=== PATIENT | male | born 1945 | race Hispanic/Latino ===

== ENCOUNTER → 2018-09-09 | Outpatient (CLI) | payer MEDICARE | END | disposition home or self-care (01) | LOC: RAH 13:57 | PROVIDERS: ATTEND Orthopaedic Surgery | DX: S83.232A Complex tear of medial meniscus, current injury, left knee, initial encounter (principal); M17.12 Unilateral primary osteoarthritis, left knee; M25.462 Effusion, left knee; X58.XXXA Exposure to other specified factors, initial encounter; Y93.89 Activity, other specified; Y92.89 Other specified places as the place of occurrence of the external cause; Y99.8 Other external cause status | CPT/HCPCS: 73721 ==

== ENCOUNTER 2018-10-24 07:30 | Day surgery (SDC) | payer MEDICARE ==
[2018-10-23 16:47] LABS: CREATININE 1.1 mg/dL (0.5-1.5); POTASSIUM 4.7 mmol/L (3.5-5.1)
[2018-10-23 17:13] VITALS: BP 195/92
[2018-10-24] VITALS (15 sets, daily range): BP systolic 118–156; BP diastolic 62–80
[~2018-10-24] VITALS: Ht 176.5 cm; Wt 102.7 kg
[~2018-10-24 07:30] MED LIST: AMLO10TA7 PO; ASPI-555 PO; ATOR20TA65 PO; CEFAZOLIN 3GM /D5W 100ML 100 ML IV SCH; CYAN500T63 PO; INSULIN SQ; METF-446 PO; SPIR25TA6 PO; VALS160T29 PO
[2018-10-24] MEDS ORDERED: SODIUM CHLORIDE 0.9% 1000ML 1,000 ML IV ONE (08:15)
[2018-10-24] MEDS ORDERED: LIDOCAINE PF 2% 5ML ABBOJECT ONE (08:23)
[2018-10-24] MEDS ORDERED: PROPOFOL 10 MG/ML 20ML VIAL IV ONE (08:24)
[2018-10-24] MEDS ORDERED: ROCURONIUM 10MG/1ML SYR 10 MG/ML ML ONE (08:24)
[2018-10-24] MEDS ORDERED: FENTANYL CITRATE PF 50 MCG/1 ML 2ML VIAL ONE ×2 (08:24→09:24)
[2018-10-24] MEDS ORDERED: MIDAZOLAM HCL 1 MG/ML 2ML VIAL ONE (08:24)
--- NOTE | 2018-10-24 08:25 | NUR ---
POTENTIAL FOR INFECTION: SHAVED LEFT KNEE / LEG PER PAM MALDONADO, FOLLOWED BY WIPING WITH MARCUS: 2% CHLORHEXIDINE GLUCONATE CLOTH PATIENTS PRE-OP SKIN PREP.
[2018-10-24] MEDS: CEFAZOLIN SODIUM 1 GM VIAL ONE ×2 (08:34→08:45)
[2018-10-24] MEDS ORDERED: CYAN50008 PO (08:51)
[2018-10-24] MEDS ORDERED: MECL-111 PO (08:51)
[2018-10-24] MEDS ORDERED: INSU100I26 SQ (08:51)
[2018-10-24] MEDS ORDERED: PHENYLEPHRINE HCL 10 MG/ML 1ML VIAL IV ONE (09:01)
[2018-10-24] MEDS ORDERED: EPHEDRINE SULFATE 50 MG/ML AMPULE ONE (09:11)
[2018-10-24] MEDS ORDERED: SODIUM CHLORIDE 0.9% 10 ML VIAL ONE (09:12)
[2018-10-24] MEDS ORDERED: KETOROLAC TROMETHAMINE 30MG/ML ONE (09:18)
[2018-10-24] MEDS ORDERED: NEOSTIGMINE 5MG/5ML SYR IV ONE (09:19)
[2018-10-24] MEDS ORDERED: GLYCOPYRROLATE 1 MG/5 ML SYRINGE ONE (09:19)
[2018-10-24] MEDS ORDERED: ONDANSETRON HCL 4 MG/2 ML VIAL ONE (09:19)
[2018-10-24] MEDS ORDERED: CEPH500B PO (09:52)
[2018-10-24] MEDS ORDERED: NAPR375T6 PO (09:52)
[2018-10-24] MEDS ORDERED: TYL3 PO (09:52)
[2018-10-24] MEDS ORDERED: MEPERIDINE-PF 25 MG/ML SYG ONE ×2 (10:03→10:18)
[2018-10-24] MEDS ORDERED: ACETAMINOPHEN-CODEINE 300/30MG TAB ONE (11:29)
--- NOTE | 2018-10-24 11:30 | NUR ---
NOTIFY WHITNEY WINN MORNING SHOW HOST NOTIFIED PT COMPLAINING OF PAIN TO LEFT KNEE SCALE OF 5, NO CHANGE EVEN AFTER ICE PACK APPLIED, ELEVATION. O2 SAT 92-94% RA. PT AWAKE ALERT, LUNGS CLEAR BILATERALLY. MORNING SHOW HOST WENT TO SEE AND TALKED TO PT AND HIS . PER MORNING SHOW HOST, OBSERVE PT FOR A LITTLE MORE TIME, MAY DISCHARGE PT IF O2 SAT CONSISTENT 94% AND ABOVE RA AND IF NOT IN SEVERE PAIN. DEEP BREATHING AND COUGHING EXERCISE INSTRUCTED.
--- NOTE | 2018-10-24 12:00 | NUR ---
DISCHARGE PT DISCHARGED VIA WHEELCHAIR WITH . PT STABLE. NOT IN ANY APPARENT DISTRESS. NO COMPLAINTS MADE, STATED HE FEELS BETTER AND READY TO GO HOME. LEFT KNEE DRESSING DRY AND INTACT, NO OOZING NOTED. CRUTCHES AND CRUTCH USE INFORMATION PROVIDED. DISCHARGE INSTRUCTIONS GIVEN TO AND PT, VERBALIZED UNDERSTANDING.
== END 2018-10-24 12:00 | disposition home or self-care (01) ==
LOC: DAH 07:30
PROVIDERS: ATTEND Orthopaedic Surgery
DX: S83.232A Complex tear of medial meniscus, current injury, left knee, initial encounter (principal); M67.52 Plica syndrome, left knee; I10 Essential (primary) hypertension; E78.5 Hyperlipidemia, unspecified; E11.9 Type 2 diabetes mellitus without complications; G47.30 Sleep apnea, unspecified; Z79.899 Other long term (current) drug therapy; E78.00 Pure hypercholesterolemia, unspecified; Z98.890 Other specified postprocedural states; Y93.73 Activity, racquet and hand sports; Y93.89 Activity, other specified; Y92.89 Other specified places as the place of occurrence of the external cause; Y99.8 Other external cause status
CPT/HCPCS: 29881; 36415; 80048; 82948 ×2; A4215; A4221; A4606; A4649 ×2; A4930 ×2; A5120; A6223; J0690; J1885; J2001; J2175 ×2; J2250; J2370; J2405; J2704; J2710; J3010 ×2; J3490 ×2; J7030 ×2; J7120

== ENCOUNTER → 2020-02-24 | Outpatient (CLI) | payer MEDICARE ==
[~2020-02-24] MED LIST changes: +AMLO-258 PO; -AMLO10TA7 PO; -ASPI-555 PO; +ASPI-556 PO; -CEFAZOLIN 3GM /D5W 100ML 100 ML IV SCH; +CEPH500B PO; +CYAN50008 PO; -CYAN500T63 PO; +CYAN500T65 PO; +INSU100I26 SQ; -INSULIN SQ; +MECL-160 PO; +NAPR375T6 PO; +TYL3 PO
== END | disposition home or self-care (01) ==
LOC: RAH 09:41
DX: R74.8 Abnormal levels of other serum enzymes (principal)
CPT/HCPCS: 76705

== ENCOUNTER → 2020-08-19 | Outpatient (CLI) | payer MEDICARE ==
[~2020-08-19] VITALS: Ht 175.3 cm; Wt 98.9 kg
[~2020-08-19] MED LIST changes: -CYAN50008 PO; +CYAN50009 PO; -CYAN500T65 PO; +CYAN500T9 PO; +REGADENOSON 0.4 MG/5 ML PF SYG IVP SCH
== END | disposition home or self-care (01) ==
LOC: SHCH 08:58
PROVIDERS: ATTEND Internal Medicine Cardiovascular Disease
DX: Z01.810 Encounter for preprocedural cardiovascular examination (principal)
CPT/HCPCS: 78452; 93017; 96374; A9500 ×2; J2785

== ENCOUNTER 2020-09-29 15:00 | Observation (INO) | payer MEDICARE ==
[~2020-09-29] VITALS: Ht 175.3 cm; Wt 101.7 kg
[2020-09-29 10:08] LABS: BASOPHILS % (AUTO) 0.4 % (0.0-5.0); EOSINOPHILS % (AUTO) 1.8 % (0.0-8.0); HEMATOCRIT 39.3 % (42-54); LYMPHOCYTES % (AUTO) 30.2 % (21.0-51.0); MEAN CORPUSCULAR HGB CONC 33.1 g/dL (32.0-36.0); MEAN CORPUSCULAR VOLUME 87.7 fL (79-99); MONOCYTES % (AUTO) 7.6 % (3.0-13.0); NEUTROPHILS % (AUTO) 59.4 % (40.0-77.0); PLATELET COUNT (AUTO) 257 K/uL (130-400); RED BLOOD CELL COUNT(AUTO) 4.48 MIL/uL (4.50-6.20); WHITE BLOOD COUNT (AUTO) 10.3 K/uL (4.8-10.8)
[2020-09-29 10:19] LABS: CREATININE 1.1 mg/dL (0.5-1.5)
[~2020-09-29 15:00] MED LIST changes: -ATOR20TA65 PO; -CEPH500B PO; -CYAN50009 PO; -CYAN500T9 PO; -INSU100I26 SQ; -MECL-160 PO; -METF-446 PO; -NAPR375T6 PO; -REGADENOSON 0.4 MG/5 ML PF SYG IVP SCH; -TYL3 PO; -VALS160T29 PO
[2020-09-30 10:10] VITALS: BP 181/77
[2020-10-03] MEDS ORDERED: METO-408 PO (10:53)
[2020-10-03] MEDS ORDERED: ATOR20TA65 PO (10:53)
[2020-10-03] MEDS ORDERED: VALS320T16 PO (10:53)
[2020-10-03] MEDS ORDERED: METF-527 PO (10:53)
[2020-10-03] MEDS ORDERED: INSU100I26 SQ (10:53)
[2020-10-04] VITALS (22 sets, daily range): BP systolic 100–183; BP diastolic 52–77
[2020-10-04] MEDS ORDERED: CEFAZOLIN SODIUM 1 GM VIAL ONE ×2 (06:14→06:47)
[2020-10-04] MEDS ORDERED: 0.9%NACL 1000ML 1,000 ML IV ONE (06:14)
[2020-10-04] MEDS ORDERED: MORPHINE PF 100MG/10ML AMP IV ONE (06:47)
[2020-10-04] MEDS ORDERED: BUPIVACAINE/EPI/PF 0.25% 30ML VIAL IJ ONE (06:47)
[2020-10-04] MEDS ORDERED: THROMBIN-JMI 20000 UNIT KIT TP ONE (06:48)
[2020-10-04] MEDS ORDERED: SUCCINYLCHOLINE CHLORIDE 20 MG/ML 10 ML VIAL ONE (06:58)
[2020-10-04] MEDS ORDERED: LIDOCAINE PF 100MG/5ML (2%) SYRINGE 5ML ONE (06:58)
[2020-10-04] MEDS ORDERED: MIDAZOLAM HCL 1 MG/ML 2ML VIAL ONE (06:59)
[2020-10-04] MEDS ORDERED: PROPOFOL 10 MG/ML 20ML VIAL IV ONE (06:59)
[2020-10-04] MEDS ORDERED: NEOSTIGMINE 5MG/5ML SYR IV ONE (06:59)
[2020-10-04] MEDS ORDERED: DEXAMETHASONE SOD PHOSPHATE 10MG/ML 1ML VIAL ONE (06:59)
[2020-10-04] MEDS ORDERED: GLYCOPYRROLATE 1 MG/5 ML SYRINGE ONE (06:59)
[2020-10-04] MEDS ORDERED: ONDANSETRON 4MG INJ ONE (07:00)
[2020-10-04] MEDS ORDERED: FENTANYL CITRATE PF 50 MCG/1 ML 2ML VIAL ONE ×2 (07:00→09:58)
[2020-10-04] MEDS ORDERED: ROCURONIUM 10MG/1ML SYR 10 MG/ML ML ONE ×2 (07:00→08:08)
[2020-10-04] MEDS ORDERED: EPHEDRINE SULFATE 50 MG/ML AMPULE ONE (07:59)
[2020-10-04] MEDS ORDERED: CEFAZOLIN SODIUM 1 GM VIAL IVP ONE (08:00)
[2020-10-04] MEDS ORDERED: MORPHINE 2 MG SYG IVP PRN (15:00)
[2020-10-04] MEDS ORDERED: KETOROLAC 10 MG TABLET PO PRN (15:00)
[2020-10-04] MEDS ORDERED: PROMETHAZINE HCL 25 MG/ML 1ML AMPULE IM PRN (15:00)
[2020-10-04] MEDS: DEXAMETHASONE SOD PHOSPHATE 4 MG/ML 1ML VIAL IVP SCH ×2 (15:00→21:34)
[2020-10-04] MEDS: LACTATED RINGERS 1000ML 1,000 ML IV SCH (15:39)
[2020-10-04] MEDS: CEFAZOLIN SODIUM 1 GM VIAL IVP SCH ×2 (15:41→21:34)
[2020-10-04] MEDS ORDERED: DEXTROSE 50%-WATER 50 ML DISP.SYRIN IV PRN (17:00)
[2020-10-04] MEDS ORDERED: GLUCAGON 1MG KIT 1 MG ML IM PRN (17:00)
[2020-10-04] MEDS: INSULIN HUMULIN R 100 UNIT/ML 3ML SQ SCH (21:37)
[2020-10-05 00:24] VITALS: BP 136/65
[2020-10-05] MEDS: LACTATED RINGERS 1000ML 1,000 ML IV SCH ×2 (02:22→17:40)
[2020-10-05] MEDS: DEXAMETHASONE SOD PHOSPHATE 4 MG/ML 1ML VIAL IVP SCH ×3 (02:24→15:00)
[2020-10-05 03:56] VITALS: BP 111/63
[2020-10-05 08:00] VITALS: BP 136/69
[2020-10-05] MEDS: INSULIN HUMULIN R 100 UNIT/ML 3ML SQ SCH ×3 (08:05→16:09)
[2020-10-05] MEDS: HYDROCODONE/ACETAMINOPHEN 5/325 MG TAB PO PRN ×2 (08:51→16:05)
[2020-10-05] MEDS ORDERED: INSULIN GLARGINE 100 UNITS/ML 10 ML VIAL SQ SCH (09:00)
[2020-10-05] MEDS ORDERED: METFORMIN HCL 500 MG TABLET PO SCH (09:00)
[2020-10-05] MEDS ORDERED: Valsartan 320 MG PO SCH (09:00)
[2020-10-05] MEDS ORDERED: ATORVASTATIN 20 MG TABLET PO SCH (09:00)
[2020-10-05] MEDS ORDERED: METOPROLOL SUCCINATE 50 MG TAB.SR.24H PO SCH (09:00)
[2020-10-05] MEDS ORDERED: SPIRONOLACTONE 25 MG TAB PO SCH (09:00)
[2020-10-05] MEDS ORDERED: ASPIRIN 81 MG EC TAB PO SCH (09:00)
[2020-10-05] MEDS ORDERED: AMLODIPINE 5 MG TAB PO SCH (09:00)
[2020-10-05 12:00] VITALS: BP 138/66
[2020-10-05 16:00] VITALS: BP 141/70
== END 2020-10-05 18:45 | disposition home or self-care (01) ==
LOC: DAHIP 10-04 06:04 → EDSTATUS 10-04 09:00 → 3DH 10-04 12:59
PROVIDERS: ADMIT Neurological Surgery; ATTEND Neurological Surgery
DX: M48.061 Spinal stenosis, lumbar region without neurogenic claudication (principal); I10 Essential (primary) hypertension; E11.9 Type 2 diabetes mellitus without complications; E78.00 Pure hypercholesterolemia, unspecified
CPT/HCPCS: 36415; 63047; 63048 ×2; 72020; 80048; 82948 ×7; 85025; 87426; 96361 ×2; 96374; 96375; 96376 ×2; A4215; A4216; A4221; A4222; A4223 ×2; A4344 ×2; A4510; A4600; A4649 ×4; G0378 ×33; G0379; J0330; J0690 ×4; J1100 ×4; J1815 ×5; J2001; J2250; J2274; J2405; J2704; J2710; J3010 ×2; J3490 ×3; J7030 ×2; J7120 ×3

== ENCOUNTER 2022-09-18 00:30 | Observation (INO) | payer MEDICARE ==
[~2022-09-18] VITALS: Ht 175.3 cm; Wt 96.6 kg
[~2022-09-18 00:30] MED LIST changes: +ATOR20TA65 PO; +INSU100I26 SQ; +METF-527 PO; +METO-408 PO; +VALS320T16 PO
[2022-09-18] MEDS ORDERED: ONDANSETRON 4MG INJ ONE (03:08)
[2022-09-18] MEDS ORDERED: 0.9%NACL 1000ML 1,000 ML IV ONE (03:30)
[2022-09-18] MEDS ORDERED: ONDANSETRON 4MG INJ IVP ONE (03:30)
[2022-09-18 03:32] LABS: BASOPHILS % (AUTO) 0.3 % (0.0-5.0); EOSINOPHILS % (AUTO) 0.1 % (0.0-8.0); LYMPHOCYTES % (AUTO) 18.6 % (21.0-51.0); MEAN CORPUSCULAR HEMOGLOBIN 29.2 pg (27.0-33.0); MEAN CORPUSCULAR HGB CONC 33.2 g/dL (32.0-36.0); MEAN CORPUSCULAR VOLUME 87.9 fL (79-99); MONOCYTES % (AUTO) 3.4 % (3.0-13.0); NEUTROPHILS % (AUTO) 77.1 % (40.0-77.0); PLATELET COUNT (AUTO) 271 K/uL (130-400); RED BLOOD CELL COUNT(AUTO) 5.35 MIL/uL (4.50-6.20); RED CELL DISTRIBUTION WIDTH 14.3 % (11.0-15.5); WHITE BLOOD COUNT (AUTO) 16.7 K/uL (4.8-10.8)
[2022-09-18 03:36] LABS: APPEARANCE,URINE CLEAR (CLEAR); BILIRUBIN,URINE NEGATIVE (NEGATIVE); COLOR,URINE LIGHT-YELLOW (YELLOW); GLUCOSE, URINE (UA) >=1000 mg/dL (NEGATIVE); KETONES,URINE 10 mg/dL (NEGATIVE); LEUKOCYTE ESTERASE ,URINE NEGATIVE Leu/uL (NEGATIVE); NITRATE,URINE NEGATIVE (NEGATIVE); OCCULT BLOOD,URINE NEGATIVE (NEGATIVE); PH,URINE 7.5 (5.0-8.0); PROTEIN,URINE 30 mg/dL (NEGATIVE); UROBILINOGEN,URINE 0.2 mg/dL (0.2-1.0)
[2022-09-18 03:40] LABS: RBC,URINE 0-1 /HPF (0-1); SQUAMOUS EPITHELIAL CELL,UR RARE /HPF (0-2); WBC,URINE 0-1 /HPF (0-1)
[2022-09-18] MEDS ORDERED: MECLIZINE HCL 25 MG TABLET PO ONE (04:00)
[2022-09-18] MEDS ORDERED: 0.9%NACL 1000ML 2,121 ML IV ONE (04:00)
[2022-09-18 06:59] LABS: ALBUMIN 4.1 g/dL (3.5-5.0); CREATININE 0.9 mg/dL (0.5-1.5); MAGNESIUM 1.7 mg/dL (1.80-2.40); POTASSIUM 4.1 mmol/L (3.5-5.1); TOTAL PROTEIN, SERUM 8.3 g/dL (6.0-8.3)
[2022-09-18] MEDS ORDERED: LORAZEPAM 2 MG/ML 1 ML VIAL IVP ONE (09:00)
[2022-09-18] MEDS ORDERED: LOSA100T59 PO (11:17)
[2022-09-18] MEDS ORDERED: METF-446 PO (11:17)
[2022-09-18] MEDS ORDERED: AMLO-258 PO (11:17)
[2022-09-18] MEDS ORDERED: CHLO25TA3 PO (11:17)
[2022-09-18] MEDS: INSULIN HUMULIN R 100 UNIT/ML 3ML SQ SCH ×3 (11:30→22:17)
[2022-09-18] MEDS ORDERED: KCL 20 MEQ ERTAB PO PRN (11:30)
[2022-09-18] MEDS ORDERED: MECLIZINE HCL 25 MG TABLET PO PRN (11:30)
[2022-09-18] MEDS ORDERED: 0.9%NACL 1000ML 1,000 ML IV SCH (11:30)
[2022-09-18] MEDS ORDERED: DEXTROSE 50%-WATER 50 ML DISP.SYRIN IV PRN (11:30)
[2022-09-18] MEDS ORDERED: POTASSIUM CHLORIDE 10% ELIXIR 20 MEQ/15 ML UDCUP PO PRN (11:30)
[2022-09-18] MEDS ORDERED: MAGNESIUM 2GM PREMIX 50ML 50 ML IV PRN (11:30)
[2022-09-18] MEDS ORDERED: POTASSIUM CHLORIDE 20MEQ/100ML 100 ML IV PRN (11:30)
[2022-09-18] MEDS ORDERED: GLUCAGON 1MG KIT 1 MG ML IM PRN (11:30)
[2022-09-18] MEDS: CEFTRIAXONE 1G VIAL IVPB SCH (12:00)
[2022-09-18] MEDS: FAMOTIDINE 20MG TAB PO SCH (22:15)
[2022-09-19] VITALS (7 sets, daily range): BP systolic 132–159; BP diastolic 69–87; PULSE 66–92; RESP 16–18; O2SAT 98
[2022-09-19] MEDS: INSULIN HUMULIN R 100 UNIT/ML 3ML SQ SCH ×2 (06:24→13:14)
[2022-09-19 06:39] LABS: HEMATOCRIT 42.5 % (42-54); MEAN CORPUSCULAR HEMOGLOBIN 28.8 pg (27.0-33.0); MEAN CORPUSCULAR HGB CONC 32.7 g/dL (32.0-36.0); RED BLOOD CELL COUNT(AUTO) 4.83 MIL/uL (4.50-6.20); RED CELL DISTRIBUTION WIDTH 14.1 % (11.0-15.5); WHITE BLOOD COUNT (AUTO) 9.2 K/uL (4.8-10.8)
[2022-09-19 06:55] LABS: ALBUMIN 3.6 g/dL (3.5-5.0); MAGNESIUM 1.9 mg/dL (1.80-2.40); THYROID STIMULATING HORMONE 2.14 uIU/mL (0.36-3.74); TOTAL PROTEIN, SERUM 7.2 g/dL (6.0-8.3)
[2022-09-19 07:00] LABS: HEMOGLOBIN A1C 7.8 % (4.0-6.0)
[2022-09-19] MEDS ORDERED: ASPIRIN 81 MG EC TAB PO SCH (09:00)
[2022-09-19] MEDS ORDERED: AMLODIPINE 5 MG TAB PO SCH (09:00)
[2022-09-19] MEDS ORDERED: ATORVASTATIN 20 MG TABLET PO SCH (09:00)
[2022-09-19] MEDS ORDERED: NON-FORMULARY MEDICATION 1 EACH (Amlodipine Besylate 10 MG) PO SCH (09:00)
[2022-09-19] MEDS ORDERED: ENOXAPARIN SODIUM 30 MG/0.3 ML SQ SCH (09:00)
[2022-09-19] MEDS ORDERED: Chlorthalidone 25 MG PO SCH (09:00)
[2022-09-19] MEDS ORDERED: METOPROLOL SUCCINATE 25 MG TAB.SR.24H PO SCH (09:00)
[2022-09-19] MEDS ORDERED: LOSARTAN 100 MG TABLET PO SCH (09:00)
[2022-09-19] MEDS: FAMOTIDINE 20MG TAB PO SCH (09:51)
[2022-09-19] MEDS ORDERED: AMOX1TAB15 PO (11:49)
[2022-09-19] MEDS ORDERED: MECL-160 PO (11:49)
[2022-09-19] MEDS: CEFTRIAXONE 1G VIAL IVPB SCH (12:51)
== END 2022-09-19 16:10 | disposition home or self-care (01) ==
LOC: EDH 00:30 → EDHIP 11:13 → 4DH 09-19 01:59
PROVIDERS: ADMIT Hospitalist; ATTEND Hospitalist
DX: A04.9 Bacterial intestinal infection, unspecified (principal); R65.11 Systemic inflammatory response syndrome (SIRS) of non-infectious origin with acute organ dysfunction; E83.42 Hypomagnesemia; E78.5 Hyperlipidemia, unspecified; J32.0 Chronic maxillary sinusitis; E66.9 Obesity, unspecified; I10 Essential (primary) hypertension; G47.33 Obstructive sleep apnea (adult) (pediatric); E11.9 Type 2 diabetes mellitus without complications; E78.00 Pure hypercholesterolemia, unspecified; H55.09 Other forms of nystagmus; G47.00 Insomnia, unspecified; K59.00 Constipation, unspecified; Z68.31 Body mass index [BMI] 31.0-31.9, adult; Z79.4 Long term (current) use of insulin; Z79.84 Long term (current) use of oral hypoglycemic drugs; Z79.899 Other long term (current) drug therapy
CPT/HCPCS: 96361; 96365; 96366; 96375; 99285; 82550; 83735 ×2; 84484; 80053 ×2; 83880; 85025; 87040 ×2; 82948 ×5; 83605 ×2; 81001; 36415 ×2; 71045; 70450; 70551; 93005; 96376; 96372; 83036; 84443; 80061; 85027; J1815 ×2; G0378 ×29; J3475; J7030; J0696 ×2; J2405; J2060; J1650

== ENCOUNTER → 2023-11-07 | Outpatient (CLI) | payer MEDICARE ==
[~2023-11-07] MED LIST changes: +AMOX1TAB15 PO; +CHLO25TA3 PO; +LOSA100T59 PO; +MECL-302 PO; +METF-446 PO
[2023-11-07] MEDS: REGADENOSON 0.4 MG/5 ML PF SYG IVP SCH (12:20)
== END | disposition home or self-care (01) ==
LOC: RAH 09:17
PROVIDERS: ATTEND Internal Medicine
DX: R06.00 Dyspnea, unspecified (principal); Z79.899 Other long term (current) drug therapy
CPT/HCPCS: 78452; 93017; J2785; A9500 ×2

== ENCOUNTER → 2024-11-19 | Outpatient (CLI) | payer MEDICARE ==
--- NOTE | 2024-11-19 12:06 | HMCIMG ---
HAND 3+VWS RT REASON: PAIN IN RIGHT HAND TECHNIQUE: 3 views were obtained. FINDINGS: There is no evidence of fracture or dislocation. There is no joint effusion. The soft tissues appear unremarkable. There is no evidence of a radiopaque foreign body. There is mild osteopenia. There is vascular calcification especially the radial artery suggesting of small vessel disease. IMPRESSION: No acute findings. . Mild osteopenia Vascular calcification suggesting of small vessel disease
== END | disposition home or self-care (01) ==
LOC: RAH 09:59
PROVIDERS: ATTEND Nurse Practitioner Family
DX: S60.561A Insect bite (nonvenomous) of right hand, initial encounter (principal); M85.841 Other specified disorders of bone density and structure, right hand; I70.8 Atherosclerosis of other arteries; M79.641 Pain in right hand; L08.9 Local infection of the skin and subcutaneous tissue, unspecified; W57.XXXA Bitten or stung by nonvenomous insect and other nonvenomous arthropods, initial encounter; Y93.89 Activity, other specified; Y92.89 Other specified places as the place of occurrence of the external cause; Y99.8 Other external cause status
CPT/HCPCS: 73130

== ENCOUNTER 2024-11-22 17:14 | Emergency (ER) | payer MEDICARE ==
[~2024-11-22] VITALS: Ht 175.3 cm; Wt 96.2 kg
--- NOTE | 2024-11-22 17:56 | ERN ---
ED Note History of Present Illness Stated Complaint: RT HAND SWELLING Chief Complaint: Hand Problem/Injury Time Seen by MD: 17:20 Time Seen by Midlevel: 17:21 Dictation: 79-year-old male who presents to the emergency department due to reported having pain and swelling to the dorsal aspect of the right hand that began eight days ago. He states that he was evaluated by his PCP for which he was told that there were no particular findings. At this time, he states that he has a pain as a 4/10. The patient states that there is no fever or chills associated with this. However, he states the pain is primarily with certain particular movements. Upon initial evaluation, the patient presents with a normal neurovascular examination with Allergies: Coded Allergies: No Known Drug Allergies (Verified Allergy, Unknown, 10/23/18) Emergency Care COUNTY HISTORIAN: None Home Meds Active Scripts Meclizine HCl (Meclizine HCl) 25 Mg Tablet, 25 MG PO TIDP PRN for DIZZINESS, #30 TAB 0 Refills Prov:MOISÉS MOONEY RESIDENTIAL FIELD MANAGER 09/19/22 Amoxicillin/Potassium Clav (Amox Tr-K Clv 500-125 mg Tab) 1 Each Tablet, 1 EACH PO BID for 5 Days, #10 TAB 0 Refills Prov:MOISÉS MOONEY RESIDENTIAL FIELD MANAGER 09/19/22 Reported Medications Metformin HCl (Metformin HCl) 1,000 Mg Tablet, 1000 MG PO BID, TAB 09/18/22 Amlodipine Besylate (Amlodipine Besylate) 10 Mg Tablet, 10 MG PO DAILY for 30 Days, #30 TAB 0 Refills 09/18/22 Losartan Potassium (Losartan Potassium) 100 Mg Tablet, 100 MG PO DAILY, TAB 09/18/22 Chlorthalidone (Chlorthalidone) 25 Mg Tablet, 25 MG PO DAILY, TAB 09/18/22 Metoprolol Succinate (Metoprolol Succinate) 25 Mg Tab.er.24h, 25 MG PO DAILY, TAB 10/03/20 Atorvastatin Calcium (Atorvastatin Calcium) 20 Mg Tablet, 20 MG PO DAILY, TAB 10/03/20 Valsartan (Valsartan) 320 Mg Tablet, 320 MG PO DAILY, TAB 10/03/20 Insulin Glargine,Hum.rec.anlog (Basaglar Kwikpen U-100) 100 Unit/1 Ml Insuln.pen, 25 UNIT SQ DAILY, SYRINGE 10/03/20 Metformin HCl (Metformin HCl ER) 1,000 Mg Tab.er.24, 1000 MG PO DAILY 10/03/20 Aspirin (Aspir 81) 81 Mg Tablet.dr, 81 MG PO DAILY, TAB 10/23/18 Amlodipine Besylate (Amlodipine Besylate) 10 Mg Tablet, 10 MG PO DAILY, TAB 10/23/18 Spironolactone (Spironolactone) 25 Mg Tablet, 25 MG PO DAILY, TAB 10/23/18 Past Medical History Past Medical History: Diabetes-Type II, High Cholesterol, Hypertension Surgical History: Other Surgical History Other: LOW BACK SX, LEFT KNEE SX RN Note Reviewed/Agreed w/PFSH: Yes Review of System Dictation MS/Extremity: Right hand pain Initial Vital Sign VS Vital Signs Date Time Temp Pulse Resp B/P (MAP) Pulse Ox O2 Delivery O2 Flow Rate FiO2 11/22/24 17:17 98.8 68 18 118/61 98 11/22/24 17:47 Room Air* 0 21 Physical Exam Dictation General: awake, alert, NAD Head/Face: Normocephalic, atraumatic Eyes: PERRL, EOMI ENT: Oral mucosa moist Neck: Trachea midline, supple Cardiovascular: RRR, no edema Respiratory: Symmetrical, non-labored Abdomen: Soft, non-tender, non-distended, no guarding. Skin: Warm, dry, good turgor, no rash MS/Extremity: Painful range of motion and tenderness to the right hand along the dorsal aspect. Normal neurovascular examination. Neuro: COAx4, GCS 15, steady gait, Psych: Normal behavior, mood, and affect normal Results (Laboratory/Radiology) Laboratory/Radiology Laboratory Tests Test 11/22/24 18:02 White Blood Count 10.1 K/uL (4.8-10.8) Red Blood Count 4.88 MIL/uL (4.50-6.20) Hemoglobin 14.4 g/dL (14.0-18.0) Hematocrit 44.6 % (42-54) Mean Corpuscular Volume 91.4 fL (79-99) Mean Corpuscular Hemoglobin 29.5 pg (27.0-33.0) Mean Corpuscular Hemoglobin Concent 32.3 g/dL (32.0-36.0) Red Cell Distribution Width 13.1 % (11.0-15.5) Platelet Count 271 K/uL (130-400) Mean Platelet Volume 9.5 fL (7.5-10.5) Immature Granulocyte % (Auto) 0.3 % (0-1) Neutrophils (%) (Auto) 56.7 % (40.0-77.0) Lymphocytes (%) (Auto) 32.3 % (21.0-51.0) Monocytes (%) (Auto) 7.6 % (3.0-13.0) Eosinophils (%) (Auto) 2.7 % (0.0-8.0) Basophils (%) (Auto) 0.4 % (0.0-5.0) Neutrophils # (Auto) 5.7 K/uL (1.8-7.7) Lymphocytes # (Auto) 3.3 K/uL (1.0-4.8) Monocytes # (Auto) 0.8 K/uL (0.1-1.0) Eosinophils # (Auto) 0.27 K/uL (0.00-0.70) Basophils # (Auto) 0.04 K/uL (0.00-0.20) Absolute Immature Granulocyte (auto 0.03 K/uL (0-1) Nucleated Red Blood Cells 0.0 % (0.0-0.19) Erythrocyte Sedimentation Rate 9 MM/HR (0-20) Sodium Level 140 mmol/L (136-145) Potassium Level 5.1 mmol/L (3.5-5.1) Chloride Level 100 mmol/L (101-111) L Carbon Dioxide Level 30 mmol/L (21-32) Blood Urea Nitrogen 31 mg/dL (7-18) H Creatinine 1.1 mg/dL (0.5-1.3) Glomerular Filtration Rate Calc 69 mL/min (>90) Random Glucose 113 mg/dL (70-105) H Total Calcium 9.4 mg/dL (8.5-10.1) Total Bilirubin 0.5 mg/dL (0.2-1.0) Aspartate Amino Transf (AST/SGOT) 21 U/L (10-37) Alanine Aminotransferase (ALT/SGPT) 26 U/L (12-78) Alkaline Phosphatase 76 U/L (50-136) C-Reactive Protein, Quantitative < 0.50 mg/L (0.5-3.0) L Total Protein 8.3 g/dL (6.0-8.3) Albumin 4.2 g/dL (3.5-5.0) Labs Reviewed?: Yes EKG Comment: Three-view x-ray of the right hand with no cortical anomalies or deformities as interpreted by me and verified by the radiologist. ED Course ED Course Orders Procedure Category Date Status Time Cbc With Differential LAB 11/22/24 Complete 17:42 Comprehensive LAB 11/22/24 Complete Metabolic Panel 17:42 Erythrocyte Sed Rate LAB 11/22/24 Complete 17:42 Crp Quantitative LAB 11/22/24 Complete 17:42 Hand 3+Vws Rt RAD 11/22/24 Resulted 17:42 Vital Signs Date Time Temp Pulse Resp B/P (MAP) Pulse Ox O2 Delivery O2 Flow Rate FiO2 11/22/24 18:47 98.1 66 14 139/61 99 Room Air* 0 21 11/22/24 17:47 98.2 70 12 135/70 98 Room Air* 0 21 11/22/24 17:17 98.8 68 18 118/61 98 Medical Decision Making MDM MDM: Differential diagnosis: What had contusion, right hand pain, hematoma right hand. Rationale: Tests considered and ordered secondary to shared decision making incl ude: Previous outside records reviewed: Old ER visits. Risk of complication and/or morbidity or mortality of patient management: None Medications-Per medication reconciliation Need for hospitalization: Patient does not meet criteria for hospitalization. Need for emergency major/minor surgery: No There are no social concerns with this patient. Prescription drug management Prescriptions will include symptomatic care Patient's prior external medical records from other ER visits were reviewed by me as indicated. Prior testing and results from previous visits were reviewed. Prior tests were taken into account with medical decision making and resource utilization, independent historian/historians were used to obtain complete medical history. I independently interpreted the test that were performed, results were reviewed by me and considered findings on radiology if ordered. Medical management and examination interpretation discussions were had by me with other qualified healthcare professionals as indicated for the patient's care. DX & DISP Disposition: Discharge Departure Impression: Primary Impression: Hematoma of right hand Condition: Stable Referrals: FALGUNI SALAZAR MD (PCP) Time of Disposition: 19:56 ROSEMARY COX Nov 22, 2024 17:55
[2024-11-22 18:09] LABS: IMMATURE GRANULOCYTE ABSOLUTE 0.03 K/uL (0-1); NUCLEATED RED BLOOD CELLS 0.0 % (0.0-0.19); PLATELET COUNT (AUTO) 271 K/uL (130-400); RED BLOOD CELL COUNT(AUTO) 4.88 MIL/uL (4.50-6.20); RED CELL DISTRIBUTION WIDTH 13.1 % (11.0-15.5); WHITE BLOOD COUNT (AUTO) 10.1 K/uL (4.8-10.8)
[2024-11-22 18:15] LABS: ERYTHROCYTE SEDIMENTATION RATE 9 MM/HR (0-20)
[2024-11-22 18:23] LABS: ASPARTATE AMINOTRANSFERASE 21 U/L (10-37); CREATININE 1.1 mg/dL (0.5-1.3); GLOMERULAR FILTR. RATE CALC 69 mL/min (>90); GLUCOSE,RANDOM 113 mg/dL (70-105); SODIUM SERUM 140 mmol/L (136-145); TOTAL PROTEIN, SERUM 8.3 g/dL (6.0-8.3); UREA NITROGEN, BLOOD 31 mg/dL (7-18)
--- NOTE | 2024-11-22 18:54 | HMCIMG ---
EXAM: CR right Hand, 3 View. CLINICAL HISTORY: pain COMPARISON: None provided. FINDINGS: BONES: No acute osseous pathology evident. Heterotopic calcification or ossification at the index finger distal interphalangeal joint may reflect a prior injury. JOINTS: No evidence of dislocation. The joint spaces are normal. SOFT TISSUES: The soft tissues appear within normal limits. No radiopaque foreign body is seen. Atherosclerotic vascular calcifications are noted. IMPRESSION: 1. No acute osseous injury or other acute findings. /[place]
[2024-11-22 20:03] VITALS: BP 132/62; PULSE 64; RESP 14; TEMP 98.3; O2SAT 98
== END 2024-11-22 20:06 | disposition home or self-care (01) ==
LOC: EDH 17:14
DX: S60.221A Contusion of right hand, initial encounter (principal); E11.9 Type 2 diabetes mellitus without complications; E78.00 Pure hypercholesterolemia, unspecified; I10 Essential (primary) hypertension; Z79.84 Long term (current) use of oral hypoglycemic drugs; Z79.82 Long term (current) use of aspirin; Z79.899 Other long term (current) drug therapy; Z79.4 Long term (current) use of insulin; X58.XXXA Exposure to other specified factors, initial encounter; Y93.89 Activity, other specified; Y92.89 Other specified places as the place of occurrence of the external cause; Y99.8 Other external cause status
CPT/HCPCS: 36415; 73130; 80053; 85025; 85651; 86140; 99284